=== PATIENT | male | born 2000 | race Caucasian/White ===

== ENCOUNTER 2023-05-31 07:03 | Day surgery (SDC) | payer OTHER, SELFPAY ==
[2023-05-31] VITALS (7 sets, daily range): BP systolic 104–140; BP diastolic 50–79; BMI 23.0
[2023-05-31] MEDS: TYLENOL 1000 MG PO (10:20)
[2023-05-31] MEDS: NORMOSOL-R 1000 IV (10:20)
--- NOTE | 2023-05-31 11:05 | W.SUR.PREOP ---
Pre-Operative Surgical Note
-
I have examined this patient prior to the performance of the scheduled procedure.
The patient's condition is unchanged from the time of the current History and
Physical and the patient is able to undergo the scheduled procedure.
--- NOTE | 2023-05-31 12:16 | W.IMMPOSTOP ---
Addendum entered and electronically signed by Toñito Jones MD 05/31/23 12:23:
#[id number]
Original Note:
Surgical Immed Post Op Note
-
Primary Surgeon: anthony
Assisting Surgeon: baljinder beltran PS-s
Pre-op Diagnosis: incisional hernia
Post-op Diagnosis: incisional hernia - 5mm
Procedure Performed: open primary IH repair
Anesthesia Type: MAC + 1% lido/0.25% marcaine
Specimen / Cultures: none
Estimated Blood Loss: 4mL
Complications: none immediate
Operative Findings: small incisional hernia at prior robo port site. only 5mm fascial defect. herniated preperitoneal fat excised. primary closure with 0 PDS
== END 2023-05-31 13:32 | disposition home or self-care (01) ==
LOC: SDS 07:03
PROVIDERS: ATTENDING PHYSICIAN Surgery
DX: K43.2 Incisional hernia without obstruction or gangrene (principal)
CPT/HCPCS: 49591

== ENCOUNTER 2023-07-13 08:25 | Outpatient (RCR) | payer OTHER, SELFPAY | END 2023-07-13 23:59 | disposition home or self-care (01) | LOC: RPT 08:25 | PROVIDERS: ATTENDING PHYSICIAN Specialist; FAMILY PHYSICIAN Internal Medicine | DX: M75.41 Impingement syndrome of right shoulder (principal); M25.511 Pain in right shoulder; Z73.6 Limitation of activities due to disability | CPT/HCPCS: 97110; 97162 ==

== ENCOUNTER 2023-07-28 15:02 | Outpatient (RCR) | payer OTHER, SELFPAY | END 2023-08-11 07:52 | disposition home or self-care (01) | LOC: RPT 15:02 | PROVIDERS: ATTENDING PHYSICIAN Specialist; FAMILY PHYSICIAN Internal Medicine | DX: M75.41 Impingement syndrome of right shoulder (principal); M25.511 Pain in right shoulder; Z73.6 Limitation of activities due to disability | CPT/HCPCS: 97110 ==